=== PATIENT | male | born 1960 | race Caucasian/White ===

== ENCOUNTER 2018-08-01 05:40 | Outpatient (CLI) | payer BC ==
[~2018-08-01] VITALS: Ht 188 cm; Wt 104.8 kg
[~2018-08-01 05:40] MED LIST: ALLP100T; CPR500T PO; HYDR-1231 PO; HYDR1CAP2
== END 2018-08-01 14:24 | disposition home or self-care (01) ==
LOC: PREOP 05:40
PROVIDERS: ATTEND Surgery
DX: Z01.818 Encounter for other preprocedural examination (principal)

== ENCOUNTER 2018-08-08 09:36 | Day surgery (SDC) | payer BC ==
[~2018-08-08] VITALS: Ht 188 cm; Wt 104.8 kg
--- OUTSIDE RECORDS SUMMARY | 2018-08-08 09:40 | XMS REPORT | Continuity of Care Document ---
Author Author [facility] Organization [facility] Address Unknown Phone Unavailable Allergies Active Description Code Type Severity Reaction Onset Reported/Identified Relationship to Patient Clinical Status Yes No Known Drug Allergies [id number] Drug Allergy Unknown N/A 09/20/2008 Medications There is no data. Problems Date Dx Coded Attending Type Code Diagnosis Diagnosed By 11/24/2011 Ot 592.0 CALCULUS OF KIDNEY 12/18/2012 Ot 592.0 CALCULUS OF KIDNEY 01/31/2014 CECILIA MICHAUD MD Ot 592.0 CALCULUS OF KIDNEY 01/31/2014 CECILIA MICHAUD MD Ot 737.30 IDIOPATHIC SCOLIOSIS 02/15/2015 JANET CEDEÑO MD Ot 584.9 ACUTE RENAL FAILURE, UNSPECIFIED 02/15/2015 JANET CEDEÑO MD Ot 591 HYDRONEPHROSIS 02/15/2015 JANET CEDEÑO MD Ot 592.1 CALCULUS OF URETER 02/15/2015 JANET CEDEÑO MD Ot 789.09 ABDOMINAL PAIN, OTHER SPECIFIED SITE 02/15/2015 Ot 592.0 02/15/2015 Ot 592.0 02/15/2015 Ot 592.0 02/15/2015 Ot 737.30 07/28/2015 Ot 592.0 07/28/2015 Ot 592.0 07/28/2015 Ot 592.0 07/28/2015 Ot 737.30 06/07/2016 Ot 592.0 CALCULUS OF KIDNEY 06/07/2016 Ot 592.0 CALCULUS OF KIDNEY 06/07/2016 Ot 592.0 CALCULUS OF KIDNEY 06/07/2016 Ot 737.30 IDIOPATHIC SCOLIOSIS 10/22/2016 Ot 592.0 CALCULUS OF KIDNEY 10/22/2016 Ot 592.0 CALCULUS OF KIDNEY 10/22/2016 Ot 592.0 CALCULUS OF KIDNEY 10/22/2016 Ot 737.30 IDIOPATHIC SCOLIOSIS 07/18/2018 Ot 592.0 CALCULUS OF KIDNEY 07/18/2018 Ot 737.30 IDIOPATHIC SCOLIOSIS Procedures There is no data. Results There is no data. Encounters ACCT No. Visit Date/Time Discharge Status Pt. Type Provider Facility Loc./Unit Complaint [id number] 02/14/2015 22:27:00 02/15/2015 01:07:00 DIS Emergency DAVIDSON LANDRUM, JANET Guzman [facility] ER POSS KIDNEY STONE [id number] 11/21/2013 07:02:00 01/31/2014 00:01:00 DIS Outpatient KEILY LANDRUM, CECILIA Moise [facility] RAD STONES [id number] 08/08/2018 10:30:00 PEN Preadmit MAIRA FLORES DO [facility] ENDO SCREENING/GERD [id number] 02/15/2015 04:44:00 Document Registration [id number] 02/15/2015 04:43:00 Document Registration [id number] 12/19/2012 00:00:00 Document Registration [id number] 11/25/2011 00:00:00 Document Registration [id number] 08/26/2011 12:46:00 Document Registration
[2018-08-08 09:45] VITALS: BP 122/88
[2018-08-08] MEDS ORDERED: LACTATED RINGERS 1,000 ML IV ONE (09:48)
[2018-08-08] MEDS ORDERED: PROPOFOL INJECTION 50 ML IV ONE (09:54)
[2018-08-08] MEDS ORDERED: MIDAZOLAM 2 MG/2 ML (VERSED) VIAL ONE (10:04)
[2018-08-08] MEDS ORDERED: LACTATED RINGERS 1,000 ML IV STA (10:08)
[2018-08-08] MEDS ORDERED: HURRICAINE EXT TUBE (BENZOCAINE) XX PRN (10:15)
--- NOTE | 2018-08-08 10:34 | Progress Note-Pre Operative ---
Pre-Operative Progress Note H&P Reviewed The H&P was reviewed, patient examined and no changes noted. Date Seen by Provider: Aug 08, 2018 Time Seen by Provider: 10:33 Date H&P Reviewed: Aug 08, 2018 Time H&P Reviewed: 10:33 Pre-Operative Diagnosis: gerd, screening colon MAIRA FLORES DO Aug 08, 2018 10:34
--- NOTE | 2018-08-08 11:22 | Progress Note-Post Operative ---
Post-Operative Progess Note Surgeon (s)/Box Press Operator (s) Surgeon MAIRA FLORES DO Box Press Operator: na Pre-Operative Diagnosis gerd, screening colon Post-Operative Diagnosis small hiatal hernia, reflux esophagitis, colon polyps Procedure & Operative Findings Date of Procedure 08/08/18 Procedure Performed/Findings egd c biopsies and colonoscopy with hot bx polypectomy x 2 Anesthesia Type per animal shelter worker Estimated Blood Loss Estimated blood loss (mL): scant Specimens/Packing Specimens Removed antrum, ge, cecum/descending colon polyps MAIRA FLORES DO Aug 08, 2018 11:22
[2018-08-08] MEDS ORDERED: PANT40TA2 PO (11:23)
--- NOTE | 2018-08-08 11:24 | Discharge Inst-Simple/Standard ---
Discharge Inst-Standard Discharge Medications New, Converted or Re-Newed RX: Transmitted to Pharmacy Patient Instructions/Follow Up Plan of Care/Instructions/FU: 3 weeks [place] Activity as Tolerated: Yes Discharge Diet: Regular Diet MAIRA FLORES DO Aug 08, 2018 11:24
[2018-08-08 11:30] VITALS: BP 99/72
[2018-08-08 12:00] VITALS: BP 106/74
[2018-08-08 12:01] VITALS: BP 106/74
--- NOTE | 2018-08-08 13:46 | Anesthesia-General Post-Op ---
MAC Patient Condition Mental Status/LOC: Same as Preop Cardiovascular: Satisfactory Nausea/Vomiting: Absent Respiratory: Satisfactory Pain: Controlled Complications: Absent Post Op Complications Complications None Follow Up Care/Instructions Patient Instructions None needed. Anesthesiology Discharge Order Discharge Order Patient is doing well, no complaints, stable vital signs, no apparent adverse anesthesia problems. No complications reported per nursing. DENILSON CHAKRABORTY CRNA Aug 08, 2018 13:46
--- NOTE | 2018-08-08 18:52 | OPERATIVE REPORT ---
DATE OF SERVICE: 08/08/2018 PREOPERATIVE DIAGNOSES: Gastroesophageal reflux disease and screening colonoscopy. POSTOPERATIVE DIAGNOSES: Small hiatal hernia, reflux esophagitis, cecal and descending colon polyp, internal hemorrhoids. PROCEDURES: EGD with biopsies, colonoscopy with hot biopsy polypectomy x2. SURGEON: Maira Kee DO ANESTHESIA: Per EMBOSSING TOOL SETTER. ESTIMATED BLOOD LOSS: Scant. COMPLICATIONS: None. INDICATIONS: The patient is a 58-year-old male with GERD and need for screening colonoscopy. He understands risks and benefits of EGD and colonoscopy. He understands and wishes to proceed. Consent was signed and on the chart. DESCRIPTION OF PROCEDURE: The patient was taken to the endoscopy suite, placed in left lateral recumbent position. Timeout was performed. Scope was inserted the mouth and esophagus, stomach and into the duodenum without difficulty. There were no polyps, mass or ulceration of the duodenum. Scope was slowly retracted back into the stomach where it was further insufflated. Biopsy of the antrum was obtained. There are no polyps, masses or ulcerations. No significant erythematous changes. Scope was retroflexed noting a small hiatal hernia. No other pathology noted. Scope was returned to its normal position, slowly withdrawn to the distal esophagus. There are some erythematous changes present, which biopsy was obtained. This is consistent with reflux esophagitis visually. Scope was then slowly retracted back noting no other pathology. Scope was slowly retracted, so completely removed, noting no other pathology. Digital rectal exam was performed. There were no palpable polyps, mass or ulcerations. The scope was inserted in the rectum and advanced all the way to the cecum with minimal difficulty. Prep was adequate. A small polyp was present in the cecum, which hot biopsy polypectomy was performed. Scope was continuously retracted back. There were no polyps, masses or ulcerations within the ascending, transverse colon. Within the descending colon, another polyp was present, which hot biopsy polypectomy was performed. Scope was continuously retracted back through the sigmoid with no polyps, masses or ulcerations. Once in the rectum, scope was retroflexed noting some internal hemorrhoids. Scope was returned to its normal position, slowly withdrawn until completely removed. The patient tolerated procedure well without any complications, taken to recovery room in stable condition. RECOMMENDATIONS: The patient will be started on Protonix 40 mg daily and see if any improvement. The patient will need repeat colonoscopy in 5 years due to polyps. We will discuss pathology next visit in approximately 2 to 3 weeks. Job ID: [id number] DocumentID: [id number] Dictated Date: 08/08/2018 11:27:22 Senior Java Developer Date: 08/08/2018 18:51:09 Dictated By: MAIRA KEE DO
== END 2018-08-08 12:00 | disposition home or self-care (01) ==
LOC: ENDO 09:36
PROVIDERS: ATTEND Surgery
DX: Z12.11 Encounter for screening for malignant neoplasm of colon (principal); D12.4 Benign neoplasm of descending colon; K63.5 Polyp of colon; K21.0 Gastro-esophageal reflux disease with esophagitis; K44.9 Diaphragmatic hernia without obstruction or gangrene; K64.8 Other hemorrhoids; Z79.899 Other long term (current) drug therapy

== ENCOUNTER → 2019-06-07 | Outpatient (CLI) | payer BC ==
[~2019-06-07] MED LIST changes: +PANT40TA2 PO
--- NOTE | 2019-06-07 09:59 | Diagnostic Imaging Report ---
PROCEDURE: MRI lumbar spine. TECHNIQUE: Multiplanar, multisequence MRI of the lumbar spine was performed without contrast. INDICATION: Low back pain COMPARISON: There are no prior MRI examinations available for comparison. FINDINGS: The localizer film reveals that there is mild levoscoliosis of the lumbar spine. The T2 sagittal images show that there is generalized narrowing and desiccation of the disc at every level. There is also degenerative disc, ligamentous and bony disease throughout the lumbar spine. At L1-L2 there is a disc bulge centrally which narrows the AP diameter of the thecal sac to 12.1 mm. There is mild neural foraminal narrowing bilaterally at this level. At the L2-L3 level there is a disc bulge which flattens the ventral aspect of the thecal sac and narrows the AP diameter to 10.7 mm. There is mild narrowing of the neural foramen bilaterally at this level as well. At the L3-L4 level, there is slight retrolisthesis of L3 with respect to L4 and there is trefoil stenosis. AP diameter of the thecal sac is narrowed to 7.5 mm. There also appears to be a small 4 mm synovial cyst involving the ligamentum flavum on the right at this level. There is also at least moderate narrowing of the neural foramen bilaterally, particularly on the right. At the L4-L5 level there is mild trefoil stenosis. The AP diameter of the thecal sac is narrowed to 8.5 mm. There is neural foraminal narrowing bilaterally at this level as well particularly on the left.. At L5-S1 the thecal sac is somewhat slender. There is a disc bulge centrally narrowing the AP diameter to 8.5 mm. There is also at least moderate neural foraminal narrowing on the left at this level and moderate neural foraminal narrowing on the right as well. There is no abnormal signal arising from the cord or the vertebral bodies to indicate an acute abnormality. There is no sign of a paraspinal mass. IMPRESSION: 1. There is degenerative disc, ligamentous and bony disease throughout the lumbar spine resulting in spinal stenosis at multiple levels. The L3-L4 level is the most severely affected as there is trefoil stenosis with neural foraminal narrowing bilaterally. 2. There is no evidence for an acute bony abnormality or for a cord lesion. Dictated by: Dictated on workstation # [id number]
== END ==
LOC: RAD 07:29
PROVIDERS: ATTEND Physician Assistant
DX: M51.36 Other intervertebral disc degeneration, lumbar region (principal); M47.816 Spondylosis without myelopathy or radiculopathy, lumbar region; M48.061 Spinal stenosis, lumbar region without neurogenic claudication
CPT/HCPCS: 72148

== ENCOUNTER 2020-05-14 07:22 | Inpatient (IN) | payer BC ==
[~2020-05-14] VITALS: Ht 185.4 cm; Wt 107.1 kg
[2020-05-14] VITALS (11 sets, daily range): BP systolic 72–129; BP diastolic 41–86
[2020-05-14] MEDS ORDERED: NS IV 1000 ML 1,000 ML ONE (07:47)
[2020-05-14] MEDS ORDERED: LACTATED RINGERS 1,000 ML IV ONE ×5 (08:02→12:22)
[2020-05-14] MEDS ORDERED: NS IV 1000 ML 1,000 ML IV SCH (08:06)
[2020-05-14 08:17] LABS: BASOPHILS % (AUTO) 0 % (0-10); EOSINOPHILS # (AUTO) 0.1 10^3/uL (0.0-0.3); EOSINOPHILS % (AUTO) 1 % (0-10); HEMATOCRIT 41 % (40-54); HEMOGLOBIN 14.5 G/DL (13.3-17.7); LYMPHOCYTES # (AUTO) 0.7 X 10^3 (1.0-4.0); LYMPHOCYTES % (AUTO) 4 % (12-44); MEAN CORPUSCULAR HEMOGLOBIN 31 PG (25-34); MEAN CORPUSCULAR HGB CONC 36 G/DL (32-36); MEAN CORPUSCULAR VOLUME 87 FL (80-99); MEAN PLATELET VOLUME 12.3 FL (7.4-10.4); MONOCYTES # (AUTO) 0.9 X 10^3 (0.0-1.0); MONOCYTES % (AUTO) 5 % (0-12); NEUTROPHILS # (AUTO) 18.2 X 10^3 (1.8-7.8); NEUTROPHILS % (AUTO) 91 % (42-75); PLATELET COUNT 114 10^3/uL (130-400)
[2020-05-14 08:39] LABS: ERYTHROCYTE SEDIMENTATION RATE 47 MM/HR (0-30)
[2020-05-14 08:43] LABS: BAND NEUTROPHILS 27 %; LYMPHOCYTES % (MANUAL) 2 %; METAMYELOCYTES % 1 %; MONOCYTES % (MANUAL) 5 %; NEUTROPHILS % (MANUAL) 65 %
[2020-05-14 08:44] LABS: BURR CELLS SLIGHT
[2020-05-14 08:47] LABS: ALBUMIN 3.5 GM/DL (3.2-4.5); CALCIUM 8.5 MG/DL (8.5-10.1); CREATININE SERUM 2.73 MG/DL (0.60-1.30); POTASSIUM 3.7 MMOL/L (3.6-5.0)
[2020-05-14 08:49] LABS: FIBRIN DEGRADATION PRODUCTS 4.16 UG/ML (0.00-0.49); INR 1.2 (0.8-1.4); PROTHROMBIN TIME PATIENT 15.4 SEC (12.2-14.7)
--- NOTE | 2020-05-14 08:55 | ED General ---
General Chief Complaint: Respiratory Problems Stated Complaint: SHORTNESS OF BREATH, FEVER Nursing Triage Note: SOA STARTED 3 DAYS AGO WITH NIGHT SWEATS AND DIARRIA. TESTED FOR COVID 05/13 AND CAME BACK NEGATIVE. Nursing Sepsis Screen: No Definite Risk Source of Information: Patient Exam Limitations: No Limitations History of Present Illness Date Seen by Provider: May 14, 2020 Time Seen by Provider: 08:02 Initial Comments Here with diarrhea for the last 3 days. Also with shortness of air and night sweats. Tested for COVID-19 yesterday with rapid test, which was negative. Denies blood in his stool but does report blood in his urine this morning noting his urine was bright red. States that he has not had much urination recently due to dehydration and diarrhea. Denies contact with COVID persons but has traveled between [facility] and [place] every other day for the past several weeks for his job. Does report sore throat with this. Timing/Duration: 2-3 Days, Getting Worse Severity: Moderate Associated Systoms: No Chest Pain, No Cough; Fever/Chills, Malaise; No Nausea/Vomiting; Shortness of Air, Weakness Allergies and Home Medications Allergies Coded Allergies: No Known Drug Allergies (Verified , 09/20/08) Home Medications Ciprofloxacin 500 Mg Tablet, 1 TAB PO BID FOR INFECTION Prescribed by: ANDREW REDMAN on 05/30/09 1822 Hydrocodone Bit/Acetaminophen 1 Tab Tablet, 1-2 TAB PO Q6H PRN for PAIN Prescribed by: JANET BARBER on 02/15/15 0100 Pantoprazole Sodium 40 Mg Tablet.dr, 40 MG PO DAILY Prescribed by: MAIRA FLORES on 08/08/18 1123 Patient Home Medication List Home Medication List Reviewed: Yes Review of Systems Review of Systems Constitutional: see HPI EENTM: see HPI; No ear pain, No nose congestion Respiratory: No cough; short of breath Cardiovascular: No chest pain Gastrointestinal: No abdominal pain; diarrhea; No nausea, No vomiting Genitourinary: decreased output, hematuria Musculoskeletal: no symptoms reported Skin: no symptoms reported All Other Systems Reviewed Negative Unless Noted: Yes Past Mveuuza-Nxqfmb-Ognyik Hx Past Med/Social Hx: Reviewed Nursing Past Med/Soc Hx Patient Social History Alcohol Use: Rarely Uses Recreational Drug Use: No Smoking Status: Never a Smoker Former Smoker, Quit: Aug 01, 1988 Recent Foreign Travel: No Contact w/Someone Who Travel: No Recent Infectious Disease Expo: No Recent Hopitalizations: No Immunizations Up To Date Tetanus Booster (TDap): Unknown Seasonal Allergies Seasonal Allergies: Yes Past Medical History Surgeries: Yes Orthopedic Respiratory: No Currently Using CPAP: No Currently Using BIPAP: No Cardiac: No Neurological: No Reproductive Disorders: No Sexually Transmitted Disease: No HIV/AIDS: No Genitourinary: Yes Kidney Stones Gastrointestinal: Yes Gastroesophageal Reflux Musculoskeletal: No Endocrine: No HEENT: No Loss of Vision: Bilateral Hearing Impairment: Denies Cancer: No Psychosocial: No Integumentary: No Blood Disorders: No Adverse Reaction/Blood Tranf: No Family Medical History Reviewed Nursing Family Hx Cancer Physical Exam-Suspected Sepsis Physical Exam Vital Signs Vital Signs - First Documented 05/14/20 07:41 Temp 37.1 Pulse 110 B/P (MAP) 76/59 (65) Pulse Ox 96 O2 Delivery Room Air Capillary Refill : NONE Blood Pressure Mean: 65 Height, Weight, BMI Height: 6'2.00" Weight: 231lbs. 0.0oz. [id number]; 29.7 BMI Method:Stated General Appearance: No Apparent Distress, WD/WN HEENT: PERRL/EOMI, Pharynx Normal Neck: Non Tender, Supple Respiratory: Lungs Clear, Normal Breath Sounds Cardiovascular: No Murmur, Tachycardia Gastrointestinal: Non Tender, Soft Back: Normal Inspection, No CVA Tenderness, No Vertebral Tenderness Extremity: Normal Range of Motion, Non Tender Neurologic/Psychiatric: Alert, Oriented x3 Skin: normal color, warm/dry Focused Exam Lactate Level 05/14/20 07:50: Lactic Acid Level 2.67*H Lactic Acid Level Laboratory Tests Test 05/14/20 07:50 Lactic Acid Level 2.67 MMOL/L (0.50-2.00) *H Procedures/Interventions Lumen: triple Central Line Procedure: betadine prep, sterile drapes applied, sterile dressing applied Position: internal jugular (R) Anesthesia: Lidocaine Volume Anesthetic (ccs): 4 Complications: none Post Position: sutured, good blood return, position confirmed w/ CXR Placed due to persistent hypotension and requirement for vasopressors. Discussed with the patient including risk and benefits and patient verbalized agreement and consent. Placed via ultrasound guidance 1 stick without complications. Sutured in place and covered with dressing using sterile technique. Progress/Results/Core Measures Suspected Sepsis Recent Fever Within 48 Hours: No Infection Criteria Present: Suspected New Infection New/Unexplained Altered Menta: No Sepsis Screen: No Definite Risk SIRS Temperature: Pulse: 110 Respiratory Rate: Laboratory Tests 05/14/20 07:50: White Blood Count 20.0H Blood Pressure 76 /59 Mean: 65 05/14/20 07:50: Lactic Acid Level 2.67*H Laboratory Tests 05/14/20 07:50: Creatinine 2.73H, INR Comment 1.2, Platelet Count 114L, Total Bilirubin 2.0H Results/Orders Lab Results Laboratory Tests Test 05/14/20 07:50 05/14/20 08:01 Range/Units White Blood Count 20.0 H 4.3-11.0 10^3/uL Red Blood Count 4.70 4.35-5.85 10^6/uL Hemoglobin 14.5 13.3-17.7 G/DL Hematocrit 41 40-54 % Mean Corpuscular Volume 87 80-99 FL Mean Corpuscular Hemoglobin 31 25-34 PG Mean Corpuscular Hemoglobin Concent 36 32-36 G/DL Red Cell Distribution Width 13.4 10.0-14.5 % Platelet Count 114 L 130-400 10^3/uL Mean Platelet Volume 12.3 H 7.4-10.4 FL Neutrophils (%) (Auto) 91 H 42-75 % Lymphocytes (%) (Auto) 4 L 12-44 % Monocytes (%) (Auto) 5 0-12 % Eosinophils (%) (Auto) 1 0-10 % Basophils (%) (Auto) 0 0-10 % Neutrophils # (Auto) 18.2 H 1.8-7.8 X 10^3 Lymphocytes # (Auto) 0.7 L 1.0-4.0 X 10^3 Monocytes # (Auto) 0.9 0.0-1.0 X 10^3 Eosinophils # (Auto) 0.1 0.0-0.3 10^3/uL Basophils # (Auto) 0.0 0.0-0.1 10^3/uL Neutrophils % (Manual) 65 % Lymphocytes % (Manual) 2 % Monocytes % (Manual) 5 % Metamyelocytes % 1 % Band Neutrophils 27 % [place] Cells SLIGHT Erythrocyte Sedimentation Rate 47 H 0-30 MM/HR Prothrombin Time 15.4 H 12.2-14.7 SEC INR Comment 1.2 0.8-1.4 Activated Partial Thromboplast Time 38 H 24-35 SEC D-Dimer 4.16 H 0.00-0.49 UG/ML Sodium Level 129 L 135-145 MMOL/L Potassium Level 3.7 3.6-5.0 MMOL/L Chloride Level 95 L 98-107 MMOL/L Carbon Dioxide Level 19 L 21-32 MMOL/L Anion Gap 15 H 5-14 MMOL/L Blood Urea Nitrogen 37 H 7-18 MG/DL Creatinine 2.73 H 0.60-1.30 MG/DL Estimat Glomerular Filtration Rate 24 BUN/Creatinine Ratio 14 Glucose Level 134 H 70-105 MG/DL Lactic Acid Level 2.67 *H 0.50-2.00 MMOL/L Calcium Level 8.5 8.5-10.1 MG/DL Corrected Calcium 8.9 8.5-10.1 MG/DL Total Bilirubin 2.0 H 0.1-1.0 MG/DL Aspartate Amino Transf (AST/SGOT) 26 5-34 U/L Alanine Aminotransferase (ALT/SGPT) 33 0-55 U/L Alkaline Phosphatase 78 40-136 U/L Lactate Dehydrogenase 263 H 125-220 U/L C-Reactive Protein High Sensitivity 33.12 H 0.00-0.50 MG/DL Total Protein 7.0 6.4-8.2 GM/DL Albumin 3.5 3.2-4.5 GM/DL Procalcitonin 8.94 H <0.10 NG/ML Coronavirus 2019 (ANTHONY) Positive H Negative Micro Results Microbiology 05/14/20 Influenza Types A,B Antigen (EMMIE) - Final, Complete My Orders Orders - JULITO HEREDIA MD Ns Iv 1000 Ml (Sodium Chloride 0.9%) (05/14/20 07:47) Cbc With Automated Diff (05/14/20 08:06) Comprehensive Metabolic Panel (05/14/20 08:06) Blood Culture (05/14/20 08:06) Sputum Culture (05/14/20 08:06) Urinalysis (05/14/20 08:06) Urine Culture (05/14/20 08:06) Protime With Inr (05/14/20 08:06) Partial Thromboplastin Time (05/14/20 08:06) Chest 1 View, Ap/Pa Only (05/14/20 08:06) Ed Iv/Invasive Line Start (05/14/20 08:06) Ed Iv/Invasive Line Start (05/14/20 08:06) Vital Signs Adult Sepsis Patie Q15M (05/14/20 08:06) O2 (05/14/20 08:06) Remove Rings In Anticipation O (05/14/20 08:06) Lactic Acid Analyzer (05/14/20 08:06) Lactated Ringers (Lr 1000 Ml Iv Solution (05/14/20 08:06) Ns Iv 1000 Ml (Sodium Chloride 0.9%) (05/14/20 08:06) Fibrin Degradation Products (05/14/20 08:06) Procalcitonin (Pct) (05/14/20 08:06) Hs C Reactive Protein (05/14/20 08:06) Erythrocyte Sedimentation Rate (05/14/20 08:06) LDH (05/14/20 08:06) Covid 19 Inhouse Test (05/14/20 08:06) Lactated Ringers (Lr 1000 Ml Iv Solution (05/14/20 08:02) Manual Differential (05/14/20 07:50) Influenza A And B Antigens (05/14/20 08:24) Lactated Ringers (Lr 1000 Ml Iv Solution (05/14/20 08:47) Chest 1 View, Ap/Pa Only (05/14/20 10:09) Norepinephrine 4 Mg/250 Ml (Norepinephri (05/14/20 10:05) Ceftriaxone For Iv Use (Rocephin For I (05/14/20 10:22) Dexamethasone Tablet (Decadron Tablet) (05/14/20 10:24) Medications Given in ED Current Medications Medications Dose Ordered Sig/Erick Route Start Time Stop Time Status Last Admin Dose Admin Lactated Ringer's 1,000 ml @ 0 mls/hr Q0M ONCE IV 05/14/20 08:06 05/14/20 08:08 DC 05/14/20 08:15 0 MLS/HR Lactated Ringer's 1,000 ml @ 0 mls/hr Q0M ONCE IV 05/14/20 08:47 05/14/20 08:48 DC 05/14/20 08:20 0 MLS/HR Vital Signs/I&O 05/14/20 07:41 Temp 37.1 Pulse 110 B/P (MAP) 76/59 (65) Pulse Ox 96 O2 Delivery Room Air Capillary Refill : NONE Blood Pressure Mean: 65 Progress Note : Progress Note Seen and evaluated. IV, labs, UA, blood cultures, lactic acid, chest x-ray, COVID-19 swab and influenza swab ordered. Patient had 3 L of fluid ordered (LR and normal saline) due to blood pressure 60s and 70s systolic. Monitor patient. 1020: Patient had persistent hypotension and will need central line. This was placed via ultrasound guidance without complications. Confirmed by chest x-ray. Fourth liter of fluid initiated and we will initiate Levophed at 0.05 mcg/kg/m to keep systolic blood pressure greater than 90 and map greater than 65. I did discuss the case with Dr. Del Rio. Patient is positive for COVID-19 and I do suspect urinary tract infection. Patient will need admission to the ICU. We will initiate Rocephin 1 g IV as soon as UA obtained. 1115: Patient unable to urinate. Hernandez catheter being placed now by nursing with Rocephin to follow. Blood pressures have remained above minimal range and we are holding Levophed at this point but we will initiate if needed. Patient agrees to admission. Diagnostic Imaging Diagonstic Imaging: Xray Plain Films/CT/US/NM/MRI: chest Comments [facility]. [place], [place] NAME: MARI MAK [facility] REC#: [id number] PT STATUS: REG ER : 1960 PHYSICIAN: JULITO HEREDIA MD ADMIT DATE: 05/14/20/ER Draft Date of Exam:05/14/20 CHEST 1 VIEW, AP/PA ONLY INDICATION: Shortness of air. Time of exam 9:03 AM Comparison is made with prior chest 09/20/2008. The heart size is normal. The pulmonary vascularity is unremarkable. The lungs are clear. No infiltrate, effusion or pneumothorax is detected. Impression: No acute cardiopulmonary process is detected. Dictated on workstation # [id number] Dict: 05/14/20905 Trans: 05/14/20908 [facility] [id number] Interpreted by: JESSIE VELASQUEZ MD Electronically signed by: Tracey Imaging: Xray Plain Films/CT/US/NM/MRI: chest Comments [facility] [place] [place] NAME: MARI MAK [facility] REC#: [id number] PT STATUS: REG ER : 1960 PHYSICIAN: JULITO HEREDIA MD ADMIT DATE: 05/14/20/ER Draft Date of Exam:05/14/20 CHEST 1 VIEW, AP/PA ONLY INDICATION: Central line placement. TIME OF EXAM: 10:25 AM Correlation is made with prior chest earlier same day. Right IJ line has tip overlying the SVC. No pneumothorax is detected. The lungs are clear. There is no effusion. Heart size is stable. IMPRESSION: Right IJ line placement. No pneumothorax is detected. Dictated on workstation # [id number] Dict: 05/14/20 1034 Trans: 05/14/20 1035 [facility] [id number] Interpreted by: JESSIE VELASQUEZ MD Electronically signed by: Departure Communication (Admissions) Time/Spoke to Admitting Phy: 10:20 Impression Primary Impression: Septic shock Additional Impressions: 2019 novel coronavirus disease (COVID-19) Urinary tract infection Qualified Codes: N30.00 - Acute cystitis without hematuria Disposition: ADMITTED INPATIENT Condition: Stable Admissions Decision to Admit Reason: Admit from ER (General) Decision to Admit/Date: May 14, 2020 Time/Decision to Admit Time: 10:20 Departure-Patient Inst. Referrals: MAYCO PAPPAS MD (PCP/Family) Primary Care Physician JULITO HEREDIA MD May 14, 2020 08:55
--- NOTE | 2020-05-14 09:09 | Diagnostic Imaging Report ---
INDICATION: Shortness of air. Time of exam 9:03 AM Comparison is made with prior chest 09/20/2008. The heart size is normal. The pulmonary vascularity is unremarkable. The lungs are clear. No infiltrate, effusion or pneumothorax is detected. Impression: No acute cardiopulmonary process is detected. Dictated by: Dictated on workstation # [id number]
[2020-05-14] MEDS ORDERED: NOREPINEPHRINE 4 MG/250 ML 250 ML IV ONE (10:05)
[2020-05-14] MEDS ORDERED: cefTRIAXone FOR IV USE 1,000 MG in WATER (STERILE) FOR INJECTION 10 ML IV STA (10:22)
[2020-05-14] MEDS ORDERED: dexAMETHasone 6 MG TAB (DECADRON) PO STA (10:24)
--- NOTE | 2020-05-14 10:36 | Diagnostic Imaging Report ---
INDICATION: Central line placement. TIME OF EXAM: 10:25 AM Correlation is made with prior chest earlier same day. Right IJ line has tip overlying the SVC. No pneumothorax is detected. The lungs are clear. There is no effusion. Heart size is stable. IMPRESSION: Right IJ line placement. No pneumothorax is detected. Dictated by: Dictated on workstation # [id number]
[2020-05-14] MEDS ORDERED: NOREPINEPHRINE 4 MG/250 ML 250 ML IV SCH (11:45)
[2020-05-14 11:48] LABS: BILIRUBIN,URINE 1+ (NEGATIVE); CLARITY,URINE CLEAR; COLOR,URINE YELLOW; GLUCOSE, URINE (UA) TRACE (NEGATIVE); KETONES,URINE NEGATIVE (NEGATIVE); LEUKOCYTE ESTERASE ,URINE NEGATIVE (NEGATIVE); NITRITE,URINE NEGATIVE (NEGATIVE); PH,URINE 5.5 (5-9); PROTEIN,URINE TRACE (NEGATIVE)
[2020-05-14 11:58] LABS: AMORPHOUS SEDIMENT,UR LARGE AMOR URATES /LPF; BACTERIA,URINE TRACE /HPF
[2020-05-14] MEDS ORDERED: EPINEPHrine 1 MG INJECTION 4 MG in NS (IVPB) 248 ML IV SCH (12:45)
[2020-05-14] MEDS ORDERED: ONDANSETRON 4 MG/2 ML (SDV) Z0FRAN IV PRN (13:00)
[2020-05-14] MEDS: NOREPINEPHRINE 4 MG/250 ML 250 ML IV SCH ×2 (13:56→19:27)
[2020-05-14] MEDS: LACTATED RINGERS 1,000 ML IV SCH ×3 (13:56→20:54)
[2020-05-14] MEDS: VASOPRESSIN INJECTION 20 UNIT in NORMAL SALINE 100 ML IV SCH ×2 (13:56→22:00)
--- NOTE | 2020-05-14 14:10 | Pulmonary History & Physicial ---
History of Present Illness History of Present Illness Date Seen by Provider: May 14, 2020 Time Seen by Provider: 14:05 Date of Admission History of Present Illness 60yo presented to ED secondary to worsening SOB, diarrhea, and night sweats. Symptoms started 3 days ago. Upon ED admission pt was found to be dehydrated. Denies contact with COVID persons but has traveled between [facility] and [place] every other day for the past several weeks for his job. Rapid COVID testing upon ED admission is positive. Allergies and Home Medications Allergies Coded Allergies: No Known Drug Allergies (Verified , 09/20/08) Home Medications Hydrocodone/Acetaminophen 1 Each Tablet, 1 EA PO Q6H PRN for PAIN-MODERATE (5- 7), (Reported) Montelukast Sodium 10 Mg Tablet, 10 MG PO HS, (Reported) Naproxen Sodium 220 Mg Capsule, 440 MG PO Q12H PRN for PAIN-MILD (1-4), (Reported) Omeprazole 40 Mg Capsule.dr, 40 MG PO HS, (Reported) Saw/Vit E/Sod Gladis/Lyc/Beta/Pyg 1 Each Tablet, 1 EACH PO DAILY, (Reported) Past Mxfbctr-Uxwnag-Rviyvt Hx Past Med/Social Hx: Reviewed Nursing Past Med/Soc Hx Patient Social History Alcohol Use: Rarely Uses Number of Drinks Today: 0 Recreational Drug Use: No Smoking Status: Never a Smoker Former Smoker, Quit: Aug 01, 1988 Recent Foreign Travel: No Contact w/Someone Who Travel: No Recent Infectious Disease Expo: Yes ( COVID POSITIVE 5 WEEKS AGO) Recent Hopitalizations: No Immunizations Up To Date Tetanus Booster (TDap): Unknown Seasonal Allergies Seasonal Allergies: Yes Past Medical History Surgeries: Yes Orthopedic Respiratory: No Currently Using CPAP: No Currently Using BIPAP: No Cardiac: No Neurological: No Reproductive Disorders: No Sexually Transmitted Disease: No HIV/AIDS: No Genitourinary: Yes Kidney Stones Gastrointestinal: Yes Gastroesophageal Reflux Musculoskeletal: No Endocrine: No HEENT: No Loss of Vision: Bilateral Hearing Impairment: Denies Cancer: No Psychosocial: No Integumentary: No Blood Disorders: No Adverse Reaction/Blood Tranf: No Family Medical History Reviewed Nursing Family Hx Cancer Review of Systems Time Seen by Provider: 14:31 Exam Exam Vital Signs Date Time Temp Pulse Resp B/P (MAP) Pulse Ox O2 Delivery O2 Flow Rate FiO2 05/14/20 13:13 105 05/14/20 07:41 37.1 110 76/59 (65) 96 Room Air Height & Weight Height: 6'2.00" Weight: 231lbs. 0.0oz. 104.378296qf; 29.29 BMI Method:Stated General Appearance: No Apparent Distress, WD/WN HEENT: PERRL/EOMI, Pharynx Normal Neck: Non Tender, Supple Respiratory: Lungs Clear, Normal Breath Sounds Cardiovascular: No Murmur, Tachycardia Capillary Refill: NONE Extremity: Normal Range of Motion, Non Tender Neurologic/Psychiatric: Alert, Oriented x3 Results Lab Laboratory Tests 05/14/20 07:50 Assessment/Plan Assessment/Plan Admission Dx COVID + - Pt is not currently requiring plasma -Start convalescent plasma Decadron -Check Ferritin Severe Sepsis -Pt has had 4 liters of IVF -Continue Rocephin -Campos cultures Hypotension -IVF -Levophed -Monitor Acute dehydration -IVF Acute renal failure -IVF and monitor Metabolic lactic acidosis -IVF Hyponatremia -Monitor GI/DVT PPX -Start lovenox 100mg daily ( DDimer is 4) - Protonix Admission Status: Inpatient Order (span 2 midnights) Reason for Inpatient Admission: COVID + - Pt is not currently requiring plasma -Start convalescent plasma -Decadron -Check Ferritin Severe Sepsis -Pt has had 4 liters of IVF -Continue Rocephin -Campos cultures Hypotension -IVF -Levophed -Monitor Acute renal failure -IVF and monitor Metabolic lactic acidosis -IVF Hyponatremia -Monitor GI/DVT PPX -Start lovenox 100mg daily ( DDimer is 4) - Protonix a CARLA REID DO May 14, 2020 14:10
[2020-05-14] MEDS ORDERED: ENOXAPARIN 40 MG/0.4 ML (LOVENOX) SYR SC SCH (14:15)
[2020-05-14] MEDS ORDERED: LACTATED RINGERS 1,000 ML IV SCH (14:15)
[2020-05-14 14:30] LABS: MAGNESIUM 1.5 MG/DL (1.6-2.4); PHOSPHORUS 3.4 MG/DL (2.3-4.7)
[2020-05-14] MEDS ORDERED: ENOXAPARIN 100 MG/1 ML (LOVENOX) SYR SC SCH (15:00)
[2020-05-14] MEDS ORDERED: dexAMETHasone 6 MG TAB (DECADRON) ONE (15:21)
[2020-05-14] MEDS ORDERED: HYDR-3820 PO (15:33)
[2020-05-14] MEDS ORDERED: NAPR220C11 PO (15:33)
[2020-05-14] MEDS ORDERED: OMEP40CA27 PO (15:33)
[2020-05-14] MEDS ORDERED: SAW/1TAB2 PO (15:33)
[2020-05-14] MEDS ORDERED: MONT10TA26 PO (15:33)
--- NOTE | 2020-05-14 15:35 | NUR ---
SPOKE WITH THE PT ( I CALLED HIS ROOM PHONE) AND WENT THRU THE EXT MED HISTORY TO COMPLETE THE MED REC PT WAS ABLE TO NAME ALL HIS MEDICATIONS WELL WHEN/HOW HE TAKES EACH OTC MEDS: JED PROSTATE PRO
[2020-05-14] MEDS ORDERED: CALCIUM CARBONATE 500 MG (TUMS) TAB.CHEW PO PRN (17:30)
[2020-05-14] MEDS ORDERED: PANTOPRAZOLE 40 MG (PROTONIX) VIAL ONE (17:51)
[2020-05-15] VITALS (27 sets, daily range): BP systolic 87–124; BP diastolic 39–96
[2020-05-15 03:24] LABS: BASOPHILS % (AUTO) 0 % (0-10); EOSINOPHILS % (AUTO) 0 % (0-10); HEMATOCRIT 33 % (40-54); HEMOGLOBIN 11.6 G/DL (13.3-17.7); LYMPHOCYTES # (AUTO) 0.5 X 10^3 (1.0-4.0); LYMPHOCYTES % (AUTO) 4 % (12-44); MEAN CORPUSCULAR HEMOGLOBIN 31 PG (25-34); MEAN CORPUSCULAR HGB CONC 35 G/DL (32-36); MEAN CORPUSCULAR VOLUME 88 FL (80-99); MEAN PLATELET VOLUME 12.3 FL (7.4-10.4); MONOCYTES # (AUTO) 0.6 X 10^3 (0.0-1.0); MONOCYTES % (AUTO) 4 % (0-12); NEUTROPHILS # (AUTO) 13.3 X 10^3 (1.8-7.8); NEUTROPHILS % (AUTO) 92 % (42-75); PLATELET COUNT 104 10^3/uL (130-400); WHITE BLOOD COUNT 14.3 10^3/uL (4.3-11.0)
[2020-05-15] MEDS: LACTATED RINGERS 1,000 ML IV SCH ×3 (03:32→17:51)
[2020-05-15] MEDS: NOREPINEPHRINE 4 MG/250 ML 250 ML IV SCH ×4 (03:32→22:02)
[2020-05-15 03:40] LABS: CALCIUM 7.8 MG/DL (8.5-10.1); CREATININE SERUM 1.74 MG/DL (0.60-1.30); MAGNESIUM 1.8 MG/DL (1.6-2.4); PHOSPHORUS 3.4 MG/DL (2.3-4.7); POTASSIUM 3.5 MMOL/L (3.6-5.0)
[2020-05-15] MEDS: MAGNESIUM 1 GM/100 ML IVPB 100 ML IV SCH (04:04)
[2020-05-15] MEDS: POTASSIUM CL 10MEQ/50ML IVPB 50 ML IV SCH ×5 (04:04→07:30)
[2020-05-15] MEDS: KCL 20 MEQ TAB (K-DUR) PO SCH (04:06)
[2020-05-15] MEDS: VASOPRESSIN INJECTION 20 UNIT in NORMAL SALINE 100 ML IV SCH ×3 (04:07→22:02)
--- NOTE | 2020-05-15 05:29 | Pulmonary Progress Note ---
Subjective Time Seen by a Provider: 05:26 Subjective/Events-last exam Pt appears to be doing better Sepsis Event Evaluation Height, Weight, BMI Height: 6'2.00" Weight: 231lbs. 0.0oz. 104.839515mm; 29.29 BMI Method:Stated Focused Exam Lactate Level 05/14/20 07:50: Lactic Acid Level 2.67*H 05/14/20 13:30: Lactic Acid Level 2.09*H 05/14/20 16:00: Lactic Acid Level 1.58 Exam Exam Vital Signs Date Time Temp Pulse Resp B/P (MAP) Pulse Ox O2 Delivery O2 Flow Rate FiO2 05/15/20 04:11 Room Air 05/15/20 03:42 05/15/20 03:33 36.3 05/15/20 03:00 99 22 94/67 (76) 98 Nasal Cannula 2.00 05/15/20 02:00 98 17 106/50 (68) 95 Nasal Cannula 2.00 05/15/20 01:00 98 13 89/57 (68) 94 Nasal Cannula 2.00 05/15/20 01:00 100 05/15/20 00:40 Nasal Cannula 2.00 05/15/20 00:00 98 17 93/67 (76) 94 Room Air 05/14/20 23:52 Room Air 05/14/20 23:50 Nasal Cannula 1.00 05/14/20 23:31 36.9 05/14/20 23:00 96 30 90/70 (77) 96 Room Air 05/14/20 22:00 101 14 92/41 (58) 96 Room Air 05/14/20 21:00 101 18 82/62 (69) 97 Room Air 05/14/20 20:21 Room Air 05/14/20 20:02 37.0 103 18 91/69 (76) 95 Room Air 05/14/20 19:00 102 15 110/72 (85) 98 Room Air 05/14/20 19:00 101 05/14/20 18:00 103 18 129/86 (100) 96 Room Air 05/14/20 17:00 105 16 94/71 (79) 97 Room Air 05/14/20 16:42 95 Room Air 05/14/20 16:00 102 15 88/70 (76) 97 Room Air 05/14/20 15:00 103 13 91/67 (75) 92 Room Air 05/14/20 14:45 98 Room Air 05/14/20 14:00 101 14 96/67 (77) 98 Room Air 05/14/20 13:21 36.4 05/14/20 13:15 103 28 72/61 (65) 93 Room Air 05/14/20 13:13 105 05/14/20 13:00 101 24 93/74 96 05/14/20 07:41 37.1 110 76/59 (65) 96 Room Air I & O 05/15/20 07:00 Intake Total 5060 ml Output Total 900 ml Balance 4160 ml Height & Weight Height: 6'2.00" Weight: 231lbs. 0.0oz. 104.895968hp; 29.29 BMI Method:Stated General Appearance: No Apparent Distress, WD/WN HEENT: PERRL/EOMI, Pharynx Normal Neck: Non Tender, Supple Respiratory: Lungs Clear, Normal Breath Sounds Cardiovascular: No Murmur, Tachycardia Extremity: Normal Range of Motion, Non Tender Neurologic/Psychiatric: Alert, Oriented x3 Results Lab Laboratory Tests 05/14/20 07:50 05/15/20 03:05 Assessment/Plan Assessment/Plan COVID + - Pt is not currently requiring oxygen -convalescent plasma Decadron Severe Sepsis -Pt has had 4 liters of IVF -Continue Rocephin -Campos cultures Hypotension - improved -IVF -Levophed - off levophed -Monitor Acute dehydration - improved Acute renal failure - improved -IVF and monitor Metabolic lactic acidosis -IVF Hyponatremia -Monitor GI/DVT PPX -lovenox 100mg daily ( DDimer is 4) - ProtonCARLA Andrews DO May 15, 2020 05:29
[2020-05-15] MEDS ORDERED: MAGNESIUM 1 GM/100 ML IVPB 100 ML IV ONE (05:30)
[2020-05-15] MEDS ORDERED: LACTATED RINGERS 1,000 ML IV SCH (06:00)
[2020-05-15 06:01] LABS: FIBRIN DEGRADATION PRODUCTS 2.5 UG/ML (0.00-0.49); INR 1.2 (0.8-1.4); PROTHROMBIN TIME PATIENT 15.9 SEC (12.2-14.7)
[2020-05-15] MEDS: dexAMETHasone 6 MG TAB (DECADRON) PO SCH (06:07)
[2020-05-15] MEDS: PANTOPRAZOLE 40 MG (PROTONIX) VIAL IV SCH (07:58)
[2020-05-15] MEDS ORDERED: cefTRIAXone 1,000 MG/SWFI 10 ML IV PUSH IV SCH ×2 (11:00)
[2020-05-15] MEDS: ENOXAPARIN 100 MG/1 ML (LOVENOX) SYR SC SCH ×2 (12:09→23:22)
--- NOTE | 2020-05-15 12:54 | NUR ---
PT'S BP CONTINUES TO BE SOFT (80S/60S TO LOW 100S/60) NEW ORDERS RECEIVED TO GIVEN LR BOLUS OVER 2 HOURS AND KEEP IN ICU FOR NOW.
[2020-05-15] MEDS ORDERED: LACTATED RINGERS 1,000 ML IV ONE (13:00)
--- NOTE | 2020-05-15 13:14 | NUR ---
Received dietary consult for MST score. Attempt to speak to pt via telephone for nutrition assessment. Pt did not answer either attempt made this day. Will monitor PO intake and attempt phone call on 05/16. Will continue to follow. Alaina Palafox MS, RD, LD
[2020-05-15] MEDS ORDERED: NS IV 500 ML 500 ML ONE (15:43)
[2020-05-15] MEDS ORDERED: NS IV 500 ML 500 ML IV ONE (15:45)
[2020-05-15] MEDS: MONTELUKAST 10 MG (SINGULAIR) TAB PO SCH (20:22)
[2020-05-16] VITALS (14 sets, daily range): BP systolic 94–126; BP diastolic 52–83
[2020-05-16] MEDS: LACTATED RINGERS 1,000 ML IV SCH ×2 (00:41→07:24)
[2020-05-16 03:34] LABS: BASOPHILS % (AUTO) 0 % (0-10); EOSINOPHILS % (AUTO) 0 % (0-10); HEMATOCRIT 32 % (40-54); HEMOGLOBIN 11.1 G/DL (13.3-17.7); LYMPHOCYTES # (AUTO) 0.5 X 10^3 (1.0-4.0); LYMPHOCYTES % (AUTO) 3 % (12-44); MEAN CORPUSCULAR HEMOGLOBIN 31 PG (25-34); MEAN CORPUSCULAR HGB CONC 35 G/DL (32-36); MEAN CORPUSCULAR VOLUME 90 FL (80-99); MEAN PLATELET VOLUME 12.2 FL (7.4-10.4); MONOCYTES # (AUTO) 0.6 X 10^3 (0.0-1.0); MONOCYTES % (AUTO) 3 % (0-12); NEUTROPHILS # (AUTO) 18.4 X 10^3 (1.8-7.8); NEUTROPHILS % (AUTO) 94 % (42-75); PLATELET COUNT 129 10^3/uL (130-400); WHITE BLOOD COUNT 19.6 10^3/uL (4.3-11.0)
[2020-05-16 03:48] LABS: POTASSIUM 3.6 MMOL/L (3.6-5.0)
[2020-05-16 03:49] LABS: CALCIUM 7.9 MG/DL (8.5-10.1)
[2020-05-16 03:53] LABS: CREATININE SERUM 1.23 MG/DL (0.60-1.30); PHOSPHORUS 2.5 MG/DL (2.3-4.7)
[2020-05-16 03:55] LABS: MAGNESIUM 1.9 MG/DL (1.6-2.4)
[2020-05-16] MEDS: POTASSIUM CL 10MEQ/50ML IVPB 50 ML IV SCH (04:15)
[2020-05-16] MEDS: MAGNESIUM 1 GM/100 ML IVPB 100 ML IV SCH (04:15)
[2020-05-16] MEDS: KCL 20 MEQ TAB (K-DUR) PO SCH (04:16)
[2020-05-16] MEDS: NOREPINEPHRINE 4 MG/250 ML 250 ML IV SCH (05:08)
--- NOTE | 2020-05-16 05:57 | Pulmonary Progress Note ---
Subjective Time Seen by a Provider: 05:56 Sepsis Event Evaluation Height, Weight, BMI Height: 6'2.00" Weight: 231lbs. 0.0oz. 104.973805tc; 29.29 BMI Method:Stated Focused Exam Lactate Level 05/14/20 07:50: Lactic Acid Level 2.67*H 05/14/20 13:30: Lactic Acid Level 2.09*H 05/14/20 16:00: Lactic Acid Level 1.58 Exam Exam Vital Signs Date Time Temp Pulse Resp B/P (MAP) Pulse Ox O2 Delivery O2 Flow Rate FiO2 05/16/20 05:00 101 20 94/67 (76) 92 Room Air 05/16/20 04:00 99 27 100/64 (76) 92 Room Air 05/16/20 03:44 Room Air 05/16/20 03:00 99 26 100/63 (75) 94 Room Air 05/16/20 02:00 105 23 96/52 (67) 96 Room Air 05/16/20 01:00 102 05/16/20 01:00 101 22 101/71 (81) 96 Room Air 05/16/20 00:00 105 18 99/68 (78) 92 Room Air 05/15/20 23:45 Room Air 05/15/20 23:20 35.9 05/15/20 23:00 104 26 96/65 (75) Room Air 05/15/20 22:00 107 17 98/67 (77) Room Air 05/15/20 21:00 105 18 97/73 (81) Room Air 05/15/20 20:38 Room Air 05/15/20 20:15 36.0 109 16 106/75 (85) Room Air 05/15/20 19:00 110 05/15/20 19:00 105 26 105/62 (76) Room Air 05/15/20 18:00 105 34 99/69 (79) Room Air 05/15/20 17:49 37.3 110 16 102/73 Room Air 05/15/20 17:00 116 36 124/96 (105) Room Air 05/15/20 16:26 37.3 107 98/77 Room Air 05/15/20 16:18 Room Air 05/15/20 16:15 111 98/77 (84) Room Air 05/15/20 16:14 37.3 05/15/20 16:10 37.3 107 13 99/71 Room Air 05/15/20 15:00 105 20 97/75 (82) Room Air 05/15/20 14:00 105 12 97/68 (78) Room Air 05/15/20 13:00 105 31 100/66 (77) Room Air 05/15/20 12:30 113 05/15/20 12:06 36.8 05/15/20 12:00 106 47 87/60 (69) Room Air 05/15/20 11:04 Room Air 05/15/20 11:00 105 17 92/57 (69) Room Air 05/15/20 10:00 113 33 106/73 (84) Room Air 05/15/20 09:00 102 26 105/39 (61) Room Air 05/15/20 08:00 35.0 05/15/20 08:00 103 20 95/77 (83) Room Air 05/15/20 08:00 Room Air 05/15/20 07:00 101 36 101/72 (82) 92 Room Air 05/15/20 06:33 102 05/15/20 06:00 98 25 95/72 (80) 96 Nasal Cannula 2.00 I & O 05/16/20 07:00 Intake Total 5020 ml Output Total 2150 ml Balance 2870 ml Height & Weight Height: 6'2.00" Weight: 231lbs. 0.0oz. 104.101326cx; 29.29 BMI Method:Stated General Appearance: No Apparent Distress, WD/WN HEENT: PERRL/EOMI, Pharynx Normal Neck: Non Tender, Supple Respiratory: Lungs Clear, Normal Breath Sounds Cardiovascular: No Murmur, Tachycardia Extremity: Normal Range of Motion, Non Tender Neurologic/Psychiatric: Alert, Oriented x3 Results Lab Laboratory Tests 05/14/20 07:50 05/15/20 03:05 05/16/20 03:25 Assessment/Plan Assessment/Plan COVID + - Pt is not currently requiring oxygen -convalescent plasma Decadron Severe Sepsis -Pt has had 4 liters of IVF -Continue Rocephin -Campos cultures Hypotension - improved -IVF -Levophed - off levophed -Monitor Acute dehydration - improved Acute renal failure - improved -IVF and monitor Metabolic lactic acidosis -IVF Hyponatremia -Monitor GI/DVT PPX -lovenox 100mg daily ( DDimer is 4) - Protonix CARLA REID DO May 16, 2020 05:57
[2020-05-16] MEDS: dexAMETHasone 6 MG TAB (DECADRON) PO SCH (06:01)
[2020-05-16] MEDS: VASOPRESSIN INJECTION 20 UNIT in NORMAL SALINE 100 ML IV SCH (06:40)
[2020-05-16] MEDS: PANTOPRAZOLE 40 MG (PROTONIX) VIAL IV SCH (08:52)
[2020-05-16] MEDS ORDERED: KCL 20 MEQ TAB (K-DUR) PO NR (09:00)
--- NOTE | 2020-05-16 10:22 | NUR ---
PT TRANSFERRED TO ROOM 432 VIA WC W/ STAFF AND PERSONAL BELONGINGS. REPORT GIVEN TO AYSHA ANGEL, NO QUESTIONS/CONCERNS VOICED.
--- NOTE | 2020-05-16 10:32 | NUR ---
NO TELE AVAILABLE TO TRANSFER PT TO ON. DR REID INFORMED.
--- NOTE | 2020-05-16 11:06 | History & Physical-Hospitalist ---
History of Present Illness HPI/Chief Complaint CC: Septic shock HPI: This is a 60yoWM clinic patient of Dr Horton who presents to the ER with weakness and fever and found to have septic shock from UTI and COVID-19 +. Pt doing pretty well UTI treated and septic shock resolved Transferring to floor Overall feels like he is doing much better Source: patient, RN/MD Exam Limitations: no limitations Date Seen 05/16/20 Time Seen by a Provider: 11:00 Attending Physician Alison Del Rio MD PCP John Horton MD Referring Physician Date of Admission May 14, 2020 at 12:00 Home Medications & Allergies Home Medications Reviewed patient Home Medication Reconciliation performed by pharmacy medication reconciliations pc technician and/or nursing. Patients Allergies have been reviewed. 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) Alcohol Use: Denies Use Recreational Drug Use: No Smoking Status: Never a Smoker Former Smoker, Quit: Aug 01, 1988 Physical Abuse Screen: No Sexual Abuse: No Recent Foreign Travel: No Contact w/other who traveled: No Recent Hopitalizations: No Recent Infectious Disease Expo: Yes ( COVID POSITIVE 5 WEEKS AGO) Immunizations Up To Date Tetanus Booster (TDap): Unknown Seasonal Allergies Seasonal Allergies: Yes Past Medical History Surgeries: Orthopedic Currently Using CPAP: No Currently Using BIPAP: No Reproductive: No Sexually Transmitted Disease: No HIV/AIDS: No Genitourinary: Kidney Stones Gastrointestinal: Gastroesophageal Reflux Loss of Vision: Bilateral Hearing Impairment: Denies History of Blood Disorders: No Adverse Reaction to Blood Mcgee: No Family History Reviewed Nursing Family Hx Cancer Review of Systems Constitutional: see HPI, dizziness, fever, malaise, weakness Respiratory: cough Psychiatric/Neurological: See HPI Physical Exam Physical Exam Vital Signs Vital Signs - First Documented 05/14/20 05/14/20 05/14/20 07:41 13:00 23:50 Temp 37.1 Pulse 110 Resp 24 B/P (MAP) 76/59 (65) Pulse Ox 96 O2 Delivery Room Air O2 Flow Rate 1.00 Capillary Refill : NONE Height, Weight, BMI Height: 6'2.00" Weight: 231lbs. 0.0oz. 104.749807gc; 29.29 BMI Method:Stated General Appearance: No Apparent Distress, Anxious, Chronically ill Eyes: Right Eye Normal Inspection, Right Eye PERRL HEENT: PERRL/EOMI, Normal ENT Inspection, Pharynx Normal, Moist Mucous Membran es Neck: Full Range of Motion, Normal Inspection, Non Tender Respiratory: Chest Non Tender, Lungs Clear, No Accessory Muscle Use, No Respiratory Distress, Decreased Breath Sounds Cardiovascular: Regular Rate, Rhythm, No Edema, No Gallop, No JVD, No Murmur, Normal Peripheral Pulses Gastrointestinal: Normal Bowel Sounds, No Organomegaly, No Pulsatile Mass, Non Tender, Soft Back: Normal Inspection, No CVA Tenderness, No Vertebral Tenderness Extremity: Normal Capillary Refill, Normal Inspection, Normal Range of Motion, Non Tender, No Calf Tenderness, No Pedal Edema Neurologic/Psychiatric: Alert, Oriented x3, No Motor/Sensory Deficits, Normal Mood/Affect Skin: Normal Color, Warm/Dry Lymphatic: No Adenopathy Results Results/Procedures Labs Laboratory Tests 05/15/20 03:05 05/16/20 03:25 Patient resulted labs reviewed. Assessment/Plan Admission Diagnosis Assessment: Septic shock UTI COVID-19 pneumonia Hypoxia Plan: Antivirals Transfer to 4th floor UTI treatment Admission Status: Inpatient Order (span 2 midnights) Reason for Inpatient Admission: COVID-19 Diagnosis/Problems Diagnosis/Problems (1) Septic shock Status: Acute (2) Urinary tract infection Status: Acute Qualifiers: Urinary tract infection type: acute cystitis Hematuria presence: without hematuria Qualified Codes: N30.00 - Acute cystitis without hematuria (3) 2019 novel coronavirus disease (COVID-19) Status: Acute (4) GERD (gastroesophageal reflux disease) Clinical Quality Measures DVT/VTE Risk/Contraindication: Risk Factor Score Per Nursin RFS Level Per Nursing on Admit: 4+=Very High RADHA LAU DO May 16, 2020 11:06
[2020-05-16] MEDS ORDERED: HYDROcodone/APAP 10 MG/325 MG (LORTAB) TAB PO PRN (11:15)
[2020-05-16] MEDS: ENOXAPARIN 100 MG/1 ML (LOVENOX) SYR SC SCH ×2 (12:18→23:37)
[2020-05-16] MEDS ORDERED: cefTRIAXone 1,000 MG/SWFI 10 ML IV PUSH IV SCH ×2 (12:30)
[2020-05-16] MEDS: PANTOPRAZOLE 40 MG (PROTONIX) TAB PO SCH (20:05)
[2020-05-16] MEDS: MONTELUKAST 10 MG (SINGULAIR) TAB PO SCH (20:05)
[2020-05-17] VITALS (7 sets, daily range): BP systolic 85–117; BP diastolic 52–77
[2020-05-17] MEDS: dexAMETHasone 6 MG TAB (DECADRON) PO SCH (05:31)
--- NOTE | 2020-05-17 05:42 | Progress Note - Hospitalist ---
Subjective HPI/CC On Admission Date Seen by Provider: May 17, 2020 Time Seen by Provider: 11:15 CC: Septic shock HPI: This is a 60yoWM clinic patient of Dr Horton who presents to the ER with weakness and fever and found to have septic shock from UTI and COVID-19 +. Pt doing pretty well UTI treated and septic shock resolved Transferring to floor Overall feels like he is doing much better Subjective/Events-last exam Patient wanted to go home and expected it but he still remains tachycardic and elevated wbc prompted PCT and it was 1.45 so broadened abx spectrum and will give IVF and he will reluctantly stay and not leave AMA HR 118 CXR no acute abnl and UA UCx was negative and BCx were negative so unsure exact source at this current time Monitor closely Declines any med for his anxiety Review of Systems General: Chills, Fatigue, Malaise Pulmonary: Cough Focused Exam Lactate Level 05/17/20 06:02: Lactic Acid Level 0.89 Objective Exam Vital Signs Vital Signs Date Time Temp Pulse Resp B/P (MAP) Pulse Ox O2 Delivery O2 Flow Rate FiO2 05/17/20 11:31 37.0 102 20 107/70 (82) 94 Room Air 05/15/20 08:00 Capillary Refill : NONE General Appearance: No Apparent Distress, WD/WN, Anxious, Chronically ill Respiratory: Chest Non Tender, Lungs Clear, Normal Breath Sounds, No Accessory Muscle Use, No Respiratory Distress, Decreased Breath Sounds Cardiovascular: No Edema, No Gallop, No JVD, No Murmur, Normal Peripheral Pulses, Tachycardia Neurologic/Psychiatric: Alert, Oriented x3, No Motor/Sensory Deficits, Normal Mood/Affect Results/Procedures Lab Laboratory Tests 05/17/20 06:02 Patient resulted labs reviewed. Assessment/Plan Assessment and Plan Assess & Plan/Chief Complaint Assessment: s/p septic shock Presumed UTI but NGTD on UCx Tachycardia will start IVF Elevated PCT will require broadening of abx for the time being Patient feels great he reports but he appears a bit anxious and labile emotionally Pt is reluctantly staying another day Diagnosis/Problems Diagnosis/Problems (1) Septic shock Status: Acute (2) Urinary tract infection Status: Acute Qualifiers: Urinary tract infection type: acute cystitis Hematuria presence: without hematuria Qualified Codes: N30.00 - Acute cystitis without hematuria (3) 2019 novel coronavirus disease (COVID-19) Status: Acute (4) GERD (gastroesophageal reflux disease) Clinical Quality Measures DVT/VTE Risk/Contraindication: Risk Factor Score Per Nursin RFS Level Per Nursing on Admit: 4+=Very High RADHA LAU DO May 17, 2020 05:42
[2020-05-17 06:16] LABS: BASOPHILS % (AUTO) 0 % (0-10); EOSINOPHILS % (AUTO) 0 % (0-10); HEMATOCRIT 34 % (40-54); HEMOGLOBIN 11.4 G/DL (13.3-17.7); LYMPHOCYTES # (AUTO) 0.8 X 10^3 (1.0-4.0); LYMPHOCYTES % (AUTO) 4 % (12-44); MEAN CORPUSCULAR HEMOGLOBIN 31 PG (25-34); MEAN CORPUSCULAR HGB CONC 34 G/DL (32-36); MEAN CORPUSCULAR VOLUME 91 FL (80-99); MONOCYTES # (AUTO) 0.9 X 10^3 (0.0-1.0); MONOCYTES % (AUTO) 4 % (0-12); NEUTROPHILS # (AUTO) 19.7 X 10^3 (1.8-7.8); NEUTROPHILS % (AUTO) 92 % (42-75); PLATELET COUNT 157 10^3/uL (130-400); WHITE BLOOD COUNT 21.4 10^3/uL (4.3-11.0)
[2020-05-17 06:30] LABS: ALBUMIN 2.4 GM/DL (3.2-4.5)
[2020-05-17 06:31] LABS: CHLORIDE 102 MMOL/L (98-107); POTASSIUM 3.6 MMOL/L (3.6-5.0); SODIUM 134 MMOL/L (135-145)
[2020-05-17 06:32] LABS: CALCIUM 7.5 MG/DL (8.5-10.1)
[2020-05-17 06:33] LABS: GLUCOSE 97 MG/DL (70-105)
[2020-05-17 06:34] LABS: CARBON DIOXIDE 23 MMOL/L (21-32)
[2020-05-17 06:35] LABS: BILIRUBIN,TOTAL 0.8 MG/DL (0.1-1.0)
[2020-05-17 06:36] LABS: ALKALINE PHOSPHATASE 60 U/L (40-136); CREATININE SERUM 1.12 MG/DL (0.60-1.30); GFR ESTIMATED > 60
[2020-05-17 06:37] LABS: BUN/CREATININE RATIO 25
[2020-05-17 06:39] LABS: ALANINE AMINOTRANSFERASE 70 U/L (0-55)
[2020-05-17] MEDS: PANTOPRAZOLE 40 MG (PROTONIX) VIAL IV SCH (09:08)
[2020-05-17] MEDS ORDERED: VANCOMYCIN INJECTION 1,000 MG in NS (IVPB) 250 ML IV SCH (12:00)
[2020-05-17] MEDS ORDERED: VANCOMYCIN INJECTION 0.1 MG in NS (IVPB) 250 ML IV SCH (12:00)
--- NOTE | 2020-05-17 12:08 | NUR ---
DR LAU ORDERED ONE BOLUS OF NS IV 125 CC/HR, CEFEPIME 1 GR Q6H (PHARMACIST MIGUEL ÁNGEL CONTACTED ABOUT DOSAGE AND SAID THIS ONE WAS CORRECT), 1 GR VANC FOR PHARMACY TO DOSE, REPEAT BLOOD CULTURES X 2, REPEAT UA, 1 VIEW CHEST XRAY (RADIOLOGY CONTACTED BY THIS RN), PRN TYLENOL 650 MG Q6H, AND TO D/C ROCEPHIN.
--- NOTE | 2020-05-17 12:21 | NUR ---
PTD Vanco - wt. 108kg, CrCl = 91ml/min (adjusted bodywt utilized). Loading dose of 2gm followed by 1gm every 8 hours. Trough ordered for 05/18 @ 1930. If trough is GREATER than 20, HOLD Vancomycin.
[2020-05-17] MEDS ORDERED: NS IV 1000 ML 1,000 ML IV ONE (12:30)
[2020-05-17] MEDS ORDERED: VANCOMYCIN 2000 MG/NS 500 ML IVPB IV NR ×2 (12:30)
--- NOTE | 2020-05-17 12:47 | Diagnostic Imaging Report ---
INDICATION: COVID positive with elevated white blood cell count. Time of exam 11:58 AM Correlation is made with prior chest from 05/14/2020. Right-sided line has tip overlying the SVC. Lungs appear to be clear. No infiltrates are detected. No effusion or pneumothorax is seen. IMPRESSION: No acute cardiopulmonary process is detected. Report was faxed to Ernesto Luque/RN Infection Control by [facility] at 12:45P.M. Dictated by: Dictated on workstation # [id number]
[2020-05-17] MEDS: CEFEPIME INJECTION 1,000 MG in WATER (STERILE) FOR INJECTION 10 ML IV SCH ×3 (13:53→23:48)
[2020-05-17] MEDS: ENOXAPARIN 100 MG/1 ML (LOVENOX) SYR SC SCH ×2 (13:53→23:48)
[2020-05-17 17:21] LABS: BILIRUBIN,URINE NEGATIVE (NEGATIVE); CLARITY,URINE CLEAR; COLOR,URINE YELLOW; GLUCOSE, URINE (UA) NEGATIVE (NEGATIVE); KETONES,URINE NEGATIVE (NEGATIVE); LEUKOCYTE ESTERASE ,URINE NEGATIVE (NEGATIVE); NITRITE,URINE NEGATIVE (NEGATIVE); PROTEIN,URINE NEGATIVE (NEGATIVE)
[2020-05-17 17:32] LABS: BACTERIA,URINE NEGATIVE /HPF; WBC,URINE 0-2 /HPF
--- NOTE | 2020-05-17 18:50 | NUR ---
RN WENT INTO ADMIN 1800 CEFEPIME DOSE. PT REPORTS FEELING LIKE HE IS WHEEZING. RN LISTENED TO PT AND HE DID HAVE WHEEZING THROUGHOUT LEFT SIDE OF LUNG, POSTERIOR AND ANTERIOR. 02 SATS AT 94 % RA AND PULSE AT 94. DR LAU NOTIFIED AND ORDERED MAT PRO. DEREK RT WAS ON COVID UNIT AND RN LET HER KNOW ABOUT NEW MAT PRO PT.
[2020-05-17] MEDS ORDERED: RT-ALBUTEROL INHALER HFA (VENTOLIN HFA) 18 GM IH PRN (19:15)
[2020-05-17] MEDS: ACETAMINOPHEN 325 MG TABLET PO PRN (21:02)
[2020-05-17] MEDS: PANTOPRAZOLE 40 MG (PROTONIX) TAB PO SCH (21:02)
[2020-05-17] MEDS: VANCOMYCIN 1 GM/NS 250 ML IVPB IV SCH ×2 (21:02)
[2020-05-17] MEDS: MONTELUKAST 10 MG (SINGULAIR) TAB PO SCH (21:02)
[2020-05-18] MEDS: CEFEPIME INJECTION 1,000 MG in WATER (STERILE) FOR INJECTION 10 ML IV SCH ×3 (05:32→17:31)
[2020-05-18] MEDS: dexAMETHasone 6 MG TAB (DECADRON) PO SCH (05:32)
[2020-05-18] MEDS: VANCOMYCIN 1 GM/NS 250 ML IVPB IV SCH ×6 (05:32→21:15)
--- NOTE | 2020-05-18 06:55 | Progress Note - Hospitalist ---
Subjective HPI/CC On Admission Date Seen by Provider: May 18, 2020 Time Seen by Provider: 11:00 CC: Septic shock HPI: This is a 60yoWM clinic patient of Dr Horton who presents to the ER with weakness and fever and found to have septic shock from UTI and COVID-19 +. Pt doing pretty well UTI treated and septic shock resolved Transferring to floor Overall feels like he is doing much better Subjective/Events-last exam WBC is decreasing IVF has helped the tachycardia NS IVF will be restarted at 100cc/hr Patient feels good otherwise Low grade fever noted CXR ok UA ok Broad spectrum abx effective but have no source PCT trending down Updated patient BM+ Eating well Very impatient with hospitalization requirements and he apologizes for that and I told him I would dc him home dany once stable Review of Systems General: Fatigue, Malaise Pulmonary: Cough Focused Exam Lactate Level 05/17/20 06:02: Lactic Acid Level 0.89 05/18/20 07:45: Lactic Acid Level 0.99 Objective Exam Vital Signs Vital Signs Date Time Temp Pulse Resp B/P (MAP) Pulse Ox O2 Delivery O2 Flow Rate FiO2 05/18/20 16:24 36.5 90 20 113/71 (85) 96 Room Air 05/15/20 08:00 Capillary Refill : NONE General Appearance: No Apparent Distress, WD/WN, Anxious Respiratory: Chest Non Tender, Lungs Clear, Normal Breath Sounds, No Accessory Muscle Use, No Respiratory Distress, Decreased Breath Sounds Cardiovascular: Regular Rate, Rhythm, No Edema, No Gallop, No JVD, No Murmur, Normal Peripheral Pulses Neurologic/Psychiatric: Alert, Oriented x3, No Motor/Sensory Deficits, Normal Mood/Affect Results/Procedures Lab Laboratory Tests 05/18/20 07:45 Patient resulted labs reviewed. Assessment/Plan Assessment and Plan Assess & Plan/Chief Complaint Assessment/Plan: s/p septic shock Presumed UTI but NGTD on UCx and repeat UA negative Tachycardia: will give more IVF since improved with bolus Elevated PCT will require broadening of abx for the time being which is trending down Patient feels great he reports but he appears a bit anxious and labile emotionally Pt is reluctantly staying another day and I counseled him on this necessity Diagnosis/Problems Diagnosis/Problems (1) Septic shock Status: Acute (2) Urinary tract infection Status: Acute Qualifiers: Urinary tract infection type: acute cystitis Hematuria presence: without hematuria Qualified Codes: N30.00 - Acute cystitis without hematuria (3) 2019 novel coronavirus disease (COVID-19) Status: Acute (4) GERD (gastroesophageal reflux disease) Clinical Quality Measures DVT/VTE Risk/Contraindication: Risk Factor Score Per Nursin RFS Level Per Nursing on Admit: 4+=Very High RADHA LAU DO May 18, 2020 06:54
[2020-05-18 07:46] VITALS: BP 139/83
[2020-05-18 08:07] LABS: BASOPHILS % (AUTO) 0 % (0-10); EOSINOPHILS # (AUTO) 0.2 10^3/uL (0.0-0.3); EOSINOPHILS % (AUTO) 1 % (0-10); HEMATOCRIT 36 % (40-54); LYMPHOCYTES # (AUTO) 0.6 X 10^3 (1.0-4.0); LYMPHOCYTES % (AUTO) 3 % (12-44); MEAN CORPUSCULAR HEMOGLOBIN 31 PG (25-34); MEAN CORPUSCULAR HGB CONC 34 G/DL (32-36); MEAN CORPUSCULAR VOLUME 91 FL (80-99); MEAN PLATELET VOLUME 12.8 FL (7.4-10.4); MONOCYTES # (AUTO) 0.9 X 10^3 (0.0-1.0); MONOCYTES % (AUTO) 5 % (0-12); NEUTROPHILS # (AUTO) 17.2 X 10^3 (1.8-7.8); NEUTROPHILS % (AUTO) 91 % (42-75); PLATELET COUNT 147 10^3/uL (130-400); WHITE BLOOD COUNT 18.9 10^3/uL (4.3-11.0)
[2020-05-18 08:13] LABS: ALBUMIN 2.5 GM/DL (3.2-4.5); CHLORIDE 105 MMOL/L (98-107); POTASSIUM 3.7 MMOL/L (3.6-5.0); SODIUM 137 MMOL/L (135-145)
[2020-05-18 08:14] LABS: CALCIUM 7.4 MG/DL (8.5-10.1)
[2020-05-18 08:15] LABS: GLUCOSE 90 MG/DL (70-105); TOTAL PROTEIN 5.2 GM/DL (6.4-8.2)
[2020-05-18 08:17] LABS: BILIRUBIN,TOTAL 0.8 MG/DL (0.1-1.0); CARBON DIOXIDE 21 MMOL/L (21-32)
[2020-05-18 08:19] LABS: ALKALINE PHOSPHATASE 60 U/L (40-136); CREATININE SERUM 1.06 MG/DL (0.60-1.30); GFR ESTIMATED > 60
[2020-05-18 08:20] LABS: BUN/CREATININE RATIO 24
[2020-05-18 08:22] LABS: ALANINE AMINOTRANSFERASE 71 U/L (0-55)
[2020-05-18] MEDS: PANTOPRAZOLE 40 MG (PROTONIX) VIAL IV SCH (08:50)
[2020-05-18] MEDS: ACETAMINOPHEN 325 MG TABLET PO PRN ×2 (08:51→21:13)
--- NOTE | 2020-05-18 08:59 | Diagnostic Imaging Report ---
INDICATION: COVID positive. Time of exam: 8:08 AM Correlation is made with prior chest from one day earlier. Heart size is normal. Right IJ line has tip overlying the SVC. Lungs are clear. Pulmonary vascularity is normal. No infiltrates are detected. There is no effusion or pneumothorax. IMPRESSION: No acute cardiopulmonary process is detected. Dictated by: Dictated on workstation # [id number]
[2020-05-18 09:42] LABS: ERYTHROCYTE SEDIMENTATION RATE 23 MM/HR (0-30)
[2020-05-18 11:13] VITALS: BP 119/75
[2020-05-18] MEDS: ENOXAPARIN 100 MG/1 ML (LOVENOX) SYR SC SCH (11:56)
[2020-05-18] MEDS: NS IV 1000 ML 1,000 ML IV SCH ×2 (11:57→21:15)
[2020-05-18 16:24] VITALS: BP 113/71
[2020-05-18] MEDS ORDERED: TROUGH ORDER-PHARMACY XX NR (19:30)
[2020-05-18 20:51] VITALS: BP 122/82
[2020-05-18] MEDS: PANTOPRAZOLE 40 MG (PROTONIX) TAB PO SCH (21:13)
[2020-05-18] MEDS: MONTELUKAST 10 MG (SINGULAIR) TAB PO SCH (21:13)
[2020-05-19] MEDS: CEFEPIME INJECTION 1,000 MG in WATER (STERILE) FOR INJECTION 10 ML IV SCH ×2 (00:27→05:35)
[2020-05-19] MEDS: ENOXAPARIN 100 MG/1 ML (LOVENOX) SYR SC SCH (00:27)
[2020-05-19 00:30] VITALS: BP 107/69
[2020-05-19 03:46] VITALS: BP 112/72
[2020-05-19] MEDS: dexAMETHasone 6 MG TAB (DECADRON) PO SCH (05:35)
[2020-05-19] MEDS: VANCOMYCIN 1 GM/NS 250 ML IVPB IV SCH ×2 (05:35)
[2020-05-19] MEDS: NS IV 1000 ML 1,000 ML IV SCH (05:36)
[2020-05-19 05:50] VITALS: BP 118/80
[2020-05-19 05:52] LABS: BASOPHILS % (AUTO) 0 % (0-10); EOSINOPHILS # (AUTO) 0.5 10^3/uL (0.0-0.3); EOSINOPHILS % (AUTO) 3 % (0-10); HEMATOCRIT 34 % (40-54); HEMOGLOBIN 11.3 G/DL (13.3-17.7); LYMPHOCYTES # (AUTO) 1.1 X 10^3 (1.0-4.0); LYMPHOCYTES % (AUTO) 7 % (12-44); MEAN CORPUSCULAR HEMOGLOBIN 30 PG (25-34); MEAN CORPUSCULAR HGB CONC 33 G/DL (32-36); MEAN CORPUSCULAR VOLUME 91 FL (80-99); MEAN PLATELET VOLUME 12.3 FL (7.4-10.4); MONOCYTES # (AUTO) 0.9 X 10^3 (0.0-1.0); MONOCYTES % (AUTO) 6 % (0-12); NEUTROPHILS # (AUTO) 13.1 X 10^3 (1.8-7.8); NEUTROPHILS % (AUTO) 85 % (42-75); PLATELET COUNT 110 10^3/uL (130-400); WHITE BLOOD COUNT 15.5 10^3/uL (4.3-11.0)
[2020-05-19 06:00] LABS: ALBUMIN 2.2 GM/DL (3.2-4.5)
[2020-05-19 06:01] LABS: CHLORIDE 106 MMOL/L (98-107); POTASSIUM 3.4 MMOL/L (3.6-5.0); SODIUM 137 MMOL/L (135-145)
[2020-05-19 06:03] LABS: GLUCOSE 105 MG/DL (70-105); TOTAL PROTEIN 4.6 GM/DL (6.4-8.2)
[2020-05-19 06:04] LABS: CARBON DIOXIDE 23 MMOL/L (21-32)
[2020-05-19 06:05] LABS: BILIRUBIN,TOTAL 0.4 MG/DL (0.1-1.0)
[2020-05-19 06:06] LABS: ALKALINE PHOSPHATASE 53 U/L (40-136)
[2020-05-19 06:07] LABS: CREATININE SERUM 0.87 MG/DL (0.60-1.30); GFR ESTIMATED > 60
[2020-05-19 06:08] LABS: BUN/CREATININE RATIO 23
[2020-05-19 06:10] LABS: ALANINE AMINOTRANSFERASE 51 U/L (0-55)
[2020-05-19 08:00] VITALS: BP 128/80
[2020-05-19] MEDS ORDERED: cefTRIAXone FOR IV USE 2,000 MG in WATER (STERILE) FOR INJECTION 20 ML IV SCH (09:00)
[2020-05-19] MEDS: PANTOPRAZOLE 40 MG (PROTONIX) VIAL IV SCH (09:45)
[2020-05-19] MEDS ORDERED: LEVO750T9 PO (11:02)
[2020-05-19] MEDS ORDERED: DEXA6TAB PO (11:02)
[2020-05-19 12:00] VITALS: BP 128/80
--- NOTE | 2020-05-20 16:31 | Discharge Summary ---
Discharge Summary Hospital Course Was the Problem List Reviewed?: Yes Problems/Dx: (1) Septic shock Status: Acute (2) Urinary tract infection Status: Acute Qualifiers: Qualified Codes: N30.00 - Acute cystitis without hematuria (3) 2019 novel coronavirus disease (COVID-19) Status: Acute (4) GERD (gastroesophageal reflux disease) Hospital Course Date of Admission: May 14, 2020 at 12:00 Admission Diagnosis : Septic shock Family Physician/Provider: John Pappas MD Date of Discharge: 05/20/20 Discharge Diagnosis: Septic shock, COVID-19 Hospital Course: Irvin Mendieta is a 60-year-old male who presented with fevers and shortness of breath and was admitted with septic shock. He was treated with broad-spectrum antibiotics and improved. He was treated for a presumed UTI. His blood and urine cultures had no growth. His procalcitonin trended down significantly. He was given a short course of Levaquin to complete as an outpatient. He also tested positive for COVID-19. He was treated with antivirals and Decadron. He was also treated with convalescent plasma. He was discharged home in stable condition. Labs and Pending Lab Test: Laboratory Tests 05/20/20 12:25: Lab Scanned Report Transfusion Reaction Form Microbiology 05/17/20 Blood Culture - Preliminary, Resulted No growth 05/14/20 MRSA Screen - Final, Complete MRSA not isolated 05/14/20 Urine Culture - Final, Complete NO GROWTH Home Meds Active Levaquin (Levofloxacin) 750 Mg Tablet 750 Mg PO DAILY 3 Days Dexamethasone 6 Mg Tablet 6 Mg PO DAILY 4 Days Reported Prostate Health Caplet (Saw/Vit E/Sod Gladis/Lyc/Beta/Pyg) 1 Each Tablet 1 Each PO DAILY Aleve (Naproxen Sodium) 220 Mg Capsule 440 Mg PO Q12H PRN Hydrocodone-Acetamin 10-325 mg (Hydrocodone/Acetaminophen) 1 Each Tablet 1 Ea PO Q6H PRN Montelukast Sodium 10 Mg Tablet 10 Mg PO HS Omeprazole 40 Mg Capsule.dr 40 Mg PO HS Assessment/Pt Instructions take medications as prescribed. Complete her course of antibiotics even if you're feeling better. Complete your taper of steroids. Follow-up with your primary care physician. Discharge Planning: <30 minutes discharge planning Discharge Instructions Discharge Diet: No Restrictions Activity as Tolerated: Yes Consultations Pulmonology Discharge Physical Examination Vital Signs Vital Signs Date Time Temp Pulse Resp B/P (MAP) Pulse Ox O2 Delivery O2 Flow Rate FiO2 05/19/20 12:00 37.1 98 18 128/80 98 Room Air 05/19/20 08:00 2.00 General Appearance: No Apparent Distress, WD/WN HEENT: PERRL/EOMI, Pharynx Normal Respiratory: Lungs Clear, Normal Breath Sounds, No Respiratory Distress Cardiovascular: Regular Rate, Rhythm, No Edema, No Murmur Gastrointestinal: Normal Bowel Sounds, Non Tender, Soft Extremity: Normal Inspection, Non Tender, No Pedal Edema Skin: Normal Color, Warm/Dry Neurologic/Psychiatric: Alert, Oriented x3, No Motor/Sensory Deficits, Normal Mood/Affect Allergies: Coded Allergies: No Known Drug Allergies (Verified , 09/20/08) Copy Copies To 1: JOHN PAPPAS MD Discharge Summary Date of Admission May 14, 2020 at 12:00 Date of Discharge May 19, 2020 at 12:00 Discharge Date: May 19, 2020 Discharge Time: 12:00 Admission Diagnosis Septic shock UTI COVID-19 pneumonia Consults/Procedures Consulations Pulmonology Discharge Diagnosis (1) Septic shock Status: Acute (2) Urinary tract infection Status: Acute Qualifiers: Qualified Codes: N30.00 - Acute cystitis without hematuria (3) 2019 novel coronavirus disease (COVID-19) Status: Acute (4) GERD (gastroesophageal reflux disease) Clinical Quality Measures DVT/VTE Risk/Contraindication: Risk Factor Score Per Nursin RFS Level Per Nursing on Admit: 4+=Very High KARLY BERTRAND MD May 20, 2020 16:28
== END 2020-05-19 12:00 | disposition home or self-care (01) | DRG 871 ==
LOC: EDUNIT# 07:22 → ER 07:24 → ICU 12:00 → 4TH 05-16 10:28
PROVIDERS: ADMIT Family Medicine; ATTEND Family Medicine
PROC: XW13325 Transfusion of Convalescent Plasma (Nonautologous) into Peripheral Vein, Percutaneous Approach, New Technology Group 5 (ICD-10-PCS; principal; 2020-05-15)
DX: A41.89 Other specified sepsis (principal); R65.21 Severe sepsis with septic shock; U07.1 COVID-19; N39.0 Urinary tract infection, site not specified; N17.9 Acute kidney failure, unspecified; E87.2 Acidosis; E87.1 Hypo-osmolality and hyponatremia; E86.0 Dehydration; K21.9 Gastro-esophageal reflux disease without esophagitis
CPT/HCPCS: 36415; 51702; 71045; 80048; 80053; 80202; 81000; 82728; 82962; 83605; 83615; 83735; 84100; 84145; 85007; 85025; 85027; 85379; 85384; 85610; 85652; 85730; 86141; 86850; 86900; 86901; 87040; 87081; 87088; 87635; 87804; 94760; 96361; 96374